=== PATIENT | female | born 1965 | race Caucasian/White ===

== ENCOUNTER 2020-11-01 12:08 | Day surgery (SDC) | payer OTHER ==
[~2020-11-01] VITALS: Ht 172.7 cm; Wt 96.5 kg
[~2020-11-01 12:08] MED LIST: ACET325T14 PO; CLON1TAB11 PO
[2020-11-01 12:46] VITALS: BP 128/83
[2020-11-01] MEDS ORDERED: CHLORHEXIDINE 15 ML UDC PO ONE (13:00)
[2020-11-01] MEDS ORDERED: LACTATED RINGERS 1,000 ML IV SCH (13:00)
[2020-11-01] MEDS ORDERED: BUPIVACAINE/PF 0.5% ONE (14:03)
[2020-11-01] MEDS ORDERED: LIDOCAINE/PF 1%, 30ML ONE (14:03)
[2020-11-01] MEDS ORDERED: MIDAZOLAM 1 MG/ML, 2ML ONE (14:44)
[2020-11-01] MEDS ORDERED: FENTANYL PF 100 MCG/2ML ONE ×3 (14:44→16:50)
[2020-11-01] MEDS ORDERED: ONDANSETRON 2MG/ML, 2ML ONE (14:49)
[2020-11-01] MEDS ORDERED: PROPOFOL 10 MG/ML, 20ML ONE (14:49)
[2020-11-01] MEDS ORDERED: DEXAMETHASONE 4 MG/ML, 1ML ONE ×2 (14:56)
[2020-11-01] MEDS ORDERED: CEFAZOLIN 1,000 MG ONE ×2 (14:56)
[2020-11-01] MEDS ORDERED: ACETAMINOPHEN 325 MG TABLET ONE (16:50)
[2020-11-01] MEDS ORDERED: OXYcodone 5 MG/5 ML ORAL.SOL UDC ONE (16:50)
[2020-11-01] MEDS: FENTANYL PF 100 MCG/2ML IV PRN ×2 (16:53→17:02)
[2020-11-01] MEDS ORDERED: ONDANSETRON 2MG/ML, 2ML IVPush PRN (17:00)
[2020-11-01] MEDS ORDERED: hydrALAzine 20 MG/ML, 1ML IV PRN (17:00)
[2020-11-01] MEDS ORDERED: DIPHENHYDRAMINE 50 MG/ML, 1ML IVPush PRN ×2 (17:00)
[2020-11-01] MEDS ORDERED: MEPERIDINE/PF 25MG/0.5ML IVPush PRN (17:00)
[2020-11-01] MEDS ORDERED: MIDAZOLAM 1 MG/ML, 2ML IV PRN (17:00)
[2020-11-01] MEDS ORDERED: LABETALOL 5MG/ML, 20ML IV PRN (17:00)
[2020-11-01] MEDS ORDERED: EPHEDRINE 50 MG/ML, 1ML IVPush PRN (17:00)
[2020-11-01] MEDS ORDERED: DIAZEPAM 5 MG/ML, 2ML IVPush PRN (17:00)
[2020-11-01] MEDS ORDERED: PROMETHAZINE 25 MG/ML, 1ML IVPush PRN (17:00)
[2020-11-01] MEDS ORDERED: ACETAMINOPHEN 325 MG TABLET PO PRN (17:00)
[2020-11-01] MEDS ORDERED: OXYcodone 5 MG/5 ML ORAL.SOL UDC PO PRN (17:00)
[2020-11-01] MEDS ORDERED: ALBUTEROL SULFATE 2.5 MG/3 ML NPPB PRN (17:00)
[2020-11-01] MEDS ORDERED: PROMETHAZINE 12.5 MG SUPP PR PRN (17:00)
[2020-11-01] MEDS ORDERED: HYDROmorphone 1 MG/ML, 1ML INJ ONE (17:09)
[2020-11-01] MEDS: HYDROmorphone 1 MG/ML, 1ML INJ IVPush PRN ×2 (17:11→17:22)
== END 2020-11-01 19:00 | disposition home or self-care (01) ==
LOC: OUT 12:08
PROVIDERS: ATTEND Orthopaedic Surgery
DX: M20.12 Hallux valgus (acquired), left foot (principal); M77.42 Metatarsalgia, left foot; M20.42 Other hammer toe(s) (acquired), left foot; M20.5X2 Other deformities of toe(s) (acquired), left foot; M19.90 Unspecified osteoarthritis, unspecified site; F41.9 Anxiety disorder, unspecified; F17.200 Nicotine dependence, unspecified, uncomplicated; Z20.822 Contact with and (suspected) exposure to COVID-19; Z79.899 Other long term (current) drug therapy
CPT/HCPCS: 20900; 28285; 28309; 28313; 28750; 64445; 64447; 73630; C1713; J0690; J1100; J1170; J2250; J2405; J2704; J3010; J7120; U0003; U0005; 76000